=== PATIENT | male | born 1980 | race Caucasian/White ===

== ENCOUNTER 2020-07-06 14:38 | Emergency (ER) | payer OTHER ==
[~2020-07-06] VITALS: Ht 180.3 cm; Wt 63.5 kg
[~2020-07-06 14:38] MED LIST: CEPH500 PO
[2020-07-06] MEDS ORDERED: Veetids 500500 MG PO (14:57)
== END 2020-07-06 15:20 | disposition home or self-care (01) ==
LOC: ER 14:38
DX: J02.9 Acute pharyngitis, unspecified (principal)
CPT/HCPCS: 99283; J1100

== ENCOUNTER 2020-07-28 16:32 | Emergency (ER) | payer OTHER ==
[~2020-07-28] VITALS: Ht 180.3 cm; Wt 63.5 kg
[~2020-07-28 16:32] MED LIST changes: +Veetids 500500 MG PO
[2020-07-28] MEDS ORDERED: Veetids 500500 MG PO (16:46)
== END 2020-07-28 16:49 | disposition home or self-care (01) ==
LOC: ER 16:32
DX: J02.0 Streptococcal pharyngitis (principal)
CPT/HCPCS: 99282